=== PATIENT | female | born 1945 ===

== ENCOUNTER 2023-12-07 12:48 | Outpatient (AMB) | payer MEDICARE, MEDICAID, SELFPAY ==
[2023-12-07 12:55] VITALS: BP 149/91; PULSE 101; O2SAT 98; BMI 24.2
--- NOTE | 2023-12-07 12:55 | MHC.OFFVIS ---
Vital Signs 12/07/23 12:55 Height 5 ft 4 in Weight 141 lb BMI 24.2 BP 149/91 H Blood Pressure Location Lt brachial Position Sitting Pulse 101 H Pulse Source Pulse Oximeter Pulse Oximetry (%) 98 Oxygen Delivery Method Room Air Intake Visit Reasons: Lumbar Radiculopthy Allergies No Known Allergies Allergy (Verified 12/07/23 13:03) Medication List - Last Reconciled 12/07/23 by Janelle Horton acetaminophen 500 mg PO Q6H PRN apixaban (Eliquis) 5 mg PO BID baclofen 10 mg PO BID dexamethasone 20 mg PO DAILY diclofenac sodium-menthol 1.5-10 % pkgs topical furosemide 20 mg PO DAILY levothyroxine 50 mcg PO DAILY lisinopril 10 mg PO DAILY rosuvastatin 10 mg PO DAILY sertraline 25 mg PO DAILY HPI Comments Details: Rosalind is a very pleasant 77-year-old female who presents to the office today, accompanied by her daughter, for evaluation and management of her left shoulder pain. Patient has been suffering with this pain for approximately 6 weeks Endorses pain over left scapula, worse with bringing her arm over her head At times pain will radiate around and over the shoulder Pain today is rated a 7/10, constant She has been evaluated in urgent Care and the emergency room multiple times without findings Unable to tolerate physical therapy due to the pain She has tried topical diclofenac without improvement. Unable to take oral anti-inflammatory medications due to current use of Eliquis She has been taking Tylenol with minimal improvement. Pain is worse with movement, resolves with lying down Trialed lidocaine patches at home without improvement of her symptoms In terms of muscle damage condition is described as sharp, cramping, aching, shooting, tiring, exhausting, stabbing Pain is negatively impacting patient's enjoyment of life, general activity, relationships with people, mood, ability to perform activities of daily living and ability to care for herself Denies implantable devices, pacemaker or defibrillator Endorses current use of anticoagulants, Eliquis Denies current use of alcohol, tobacco, nicotine or illicit substances [facility] Medical History (Updated 12/07/23 @ 15:26 by Vivienne Lerma, HOUSING OFFICER, AUDIT SENIOR ASSOCIATE) Hypertension Hyperlipidemia Nonischemic cardiomyopathy Osteopenia Non-ST elevated myocardial infarction Peripheral artery disease Afib Osteoarthritis Reflux esophagitis Pulmonary hypertension Spinal stenosis Cervical spondylosis Review of Systems Const All systems reviewed & are unremarkable except as noted in HPI and below Physical Exam Vital Signs: Last Vital Signs Pulse 101 H 12/07/23 12:55 BP 149/91 H 12/07/23 12:55 Pulse Ox 98 12/07/23 12:55 Oxygen Delivery Method Room Air 12/07/23 12:55 BMI result Body Mass Index 24.2 General: awake, alert, oriented. Answers questions appropriately. Fully engaged in examination. Skin: warm, dry, intact HEENT: Normocephalic. Hearing intact. Cardiac: External chest normal in appearance. Respiratory: No cough, audible wheezing or stridor. Abdomen: without gross distension. MS: No obvious swelling or deformities. Tenderness over left scapula Pain with overhead reach on the left Bilateral upper extremity strength 5/5 Nontender over anterior shoulder Nontender over midline thoracic vertebrae or thoracic paraspinal muscles Nontender over midline cervical vertebrae there cervical paraspinal muscles Full cervical range of motion Facet loading negative Negative cross-body and behind the back reach Empty can negative Neurological: Oriented to person, place, time and situation. Thought process intact. No gait abnormalities appreciated. Psychiatric: Appropriate mood and affect. Good judgment and insight. Results Reviewed Results Reviewed: Thoracic spine MRI from [facility] dated 12/03/2023: Impression: Unremarkable Lumbar spine MRI from [facility] dated 11/25/2023: Impression: Degenerative changes of the lumbar spine Assessment & Plan Assessment & Plan (1) Painful arc syndrome of left shoulder: Code(s): M75.102 - Unspecified rotator cuff tear or rupture of left shoulder, not specified as traumatic Category: Medical (2) Lumbar spondylosis: Code(s): M47.816 - Spondylosis without myelopathy or radiculopathy, lumbar region Category: Medical (3) Chronic anticoagulation: Comment: On Eliquis Code(s): Z79.01 - skilled nursing (current) use of anticoagulants Category: Medical Plan Rosalind is a very pleasant 77-year-old female who presented to the office today, accompanied by her daughter, for evaluation and management of her chronic pain Today she requested to focus on her left shoulder pain. She has exhausted conservative therapy including topical diclofenac, oral muscle relaxers, massage, Tylenol. She is unable to attend physical therapy as it is too painful. She is unable to take oral nonsteroidal anti-inflammatory medications due to current use of Eliquis Discussed at length with patient diagnosis and treatment options. Will schedule for left suprascapular nerve block with local anesthetic. New prescription for gabapentin 100 mg p.o. t.i.d.. Prescription sent for Salonpas patches All questions and concerns were answered, patient and daughter agree with the plan. Follow-up after injection, sooner if needed Medications: New capsaicin-menthol 0.025-1.25 % (Salonpas (capsaicin-menthol)) may leave on area for up to 8 hrs 1 patch topical TID 6 ea 6RF gabapentin 100 mg PO TID 90 caps 1RF Coding Level of Care Code New Pt Level 4 (30662) Complex EM visit Add On G2211 Diagnoses Painful arc syndrome of left shoulder M75.102 Lumbar spondylosis M47.816 Chronic anticoagulation Z79.01
== END 2023-12-07 13:37 | disposition home or self-care (01) ==
PROVIDERS: PCP Physician Assistant; Visit Provider Registered Nurse Emergency
DX: M75.102 Unspecified rotator cuff tear or rupture of left shoulder, not specified as traumatic (principal); M47.816 Spondylosis without myelopathy or radiculopathy, lumbar region; Z79.01 Long term (current) use of anticoagulants
CPT/HCPCS: 99204; G2211

== ENCOUNTER → 2023-12-07 12:48 | Outpatient (BNVA) | payer MEDICARE, MEDICAID, SELFPAY | PROVIDERS: PCP Physician Assistant; Visit Provider Registered Nurse Emergency | DX: M75.102 Unspecified rotator cuff tear or rupture of left shoulder, not specified as traumatic (principal); M47.816 Spondylosis without myelopathy or radiculopathy, lumbar region; M85.80 Other specified disorders of bone density and structure, unspecified site; Z79.01 Long term (current) use of anticoagulants | CPT/HCPCS: 99202 ==